=== PATIENT | male | born 1960 | race Caucasian/White ===

== ENCOUNTER 2016-07-18 11:12 | Inpatient (IN) | payer OTHER ==
[~2016-07-18] VITALS: Ht 154.9 cm; Wt 70.4 kg
[2016-07-18] MEDS ORDERED: ASPIRIN 81MG TABLET PO ONE (14:00)
[2016-07-18 14:16] LABS: BASOPHILS % 0.4 % (0.0-2.0); EOSINOPHILS % 0.5 % (0.0-5.0); HEMATOCRIT. 42.5 % (42.0-52.0); HEMOGLOBIN. 14.7 g/dL (14.0-18.0); LYMPHOCYTES % 11.6 % (20.0-50.0); MEAN CORPUSCULAR HGB CONC 34.5 g/dL (31.0-37.0); MEAN CORPUSCULAR VOLUME 89.9 fL (80.0-94.0); MEAN PLATELET VOLUME 8.5 fl (7.4-10.4); MONOCYTES % 5.2 % (2.0-8.0); NEUTROPHILS % 82.3 % (40.0-76.0); PLATELET 80 x1000/uL (130-400); RED BLOOD CELL COUNT 4.73 mill/uL (4.7-6.1); RED CELL DISTRIBUTION WIDTH 13.6 % (11.6-14.6); WHITE BLOOD COUNT 6.7 x1000/uL (4.5-11.0)
[2016-07-18 14:31] LABS: ALANINE AMINOTRANSFERASE 63 IU/L (13-61); ALBUMIN 4.1 g/dL (3.4-5.0); ANION GAP 14; CARBON DIOXIDE 26 mEq/L (21-32); CHLORIDE 105 mEq/L (98-107); HDL CHOLESTEROL 47 mg/dL (40-59); INDEX HEMOLYSI 1 (1-3); INDEX ICTERIC 1 (1-4); INDEX LIPEMIC 1 (1-3); LDL CHOLESTEROL 135 mg/dL (5-100); TRIGLYCERIDE 177 mg/dL (0-150); UREA NITROGEN BLOOD 17 mg/dL (7-21); eGFR > 60 mL/min (>60)
[2016-07-18] MEDS ORDERED: ENOXAPARIN 80MG/0.8ML SYR SUBCUT NR (16:30)
[2016-07-18] MEDS ORDERED: NITROGLYCERIN OINT 1GM/INCH UDPKT TD NR (16:30)
[2016-07-18] MEDS ORDERED: METOPROLOL TARTRATE 25MG TABLET PO ONE (16:30)
[2016-07-18] MEDS ORDERED: CLONIDINE 0.1MG TABLET PO PRN (17:15)
[2016-07-18 17:27] VITALS: BP 153/96
[2016-07-18 17:35] LABS: BASOPHILS % 0.4 % (0.0-2.0); EOSINOPHILS % 0.2 % (0.0-5.0); HEMATOCRIT. 43.1 % (42.0-52.0); LYMPHOCYTES % 11.3 % (20.0-50.0); MEAN CORPUSCULAR HEMOGLOBIN 31.5 pg (28.0-32.0); MEAN CORPUSCULAR HGB CONC 34.9 g/dL (31.0-37.0); MEAN CORPUSCULAR VOLUME 90.4 fL (80.0-94.0); MEAN PLATELET VOLUME 8.9 fl (7.4-10.4); MONOCYTES % 5.8 % (2.0-8.0); NEUTROPHILS % 82.3 % (40.0-76.0); PLATELET 90 x1000/uL (130-400); RED BLOOD CELL COUNT 4.77 mill/uL (4.7-6.1); RED CELL DISTRIBUTION WIDTH 13.9 % (11.6-14.6)
[2016-07-18 18:00] VITALS: BP 171/97
[2016-07-18] MEDS ORDERED: SIMV20TA6 PO (18:12)
[2016-07-18] MEDS ORDERED: SITA1TAB8 PO (18:12)
[2016-07-18] MEDS ORDERED: BENA20TA3 PO (18:12)
[2016-07-18] MEDS ORDERED: GLIP10TA10 PO (18:12)
[2016-07-18] MEDS ORDERED: DEXT 5%/0.45% NACL 1000ML 1,000 ML IV SCH (18:21)
[2016-07-18] MEDS ORDERED: ONDANSETRON HCL 4MG/2ML VIAL IV PRN (18:30)
[2016-07-18] MEDS ORDERED: DEXTROSE 50% WATER 50ML SYRINGE IV PRN (18:30)
[2016-07-18] MEDS ORDERED: MORPHINE SULFATE 2 MG/ML CPJ (NOT FOR IM USE) IV PRN (18:30)
[2016-07-18] MEDS ORDERED: IPRATROPIUM/ALBUTEROL 0.5-3(2.5)MG/3ML NEB INH PRN (18:30)
[2016-07-18] MEDS: LOSARTAN POTASSIUM 25 MG TABLET PO SCH ×2 (18:34→20:15)
[2016-07-18] MEDS: AMLODIPINE 2.5MG TABLET PO SCH ×2 (18:34→20:15)
[2016-07-18 20:00] VITALS: BP 170/86
[2016-07-18] MEDS: INSULIN LISPRO 100 UNITS/ML SUBCUT SCH (20:17)
[2016-07-18] MEDS: BLOOD SUGAR DIAGNOSTIC STRIP TEST SCH (20:17)
[2016-07-18 22:00] VITALS: BP 143/78
[2016-07-18 23:31] LABS: *AMPHETAMINES SCREEN URINE NEGATIVE (NEGATIVE); *BARBITURATES SCREEN URINE NEGATIVE (NEGATIVE); *BENZODIAZEPINES SCREEN URINE NEGATIVE (NEGATIVE); *COCAINE SCREEN URINE NEGATIVE (NEGATIVE); CANNABINOID URINE SCREEN NEGATIVE (NEGATIVE); ECSTASY MDMA SCREEN URINE NEGATIVE (NEGATIVE); METHADONE URINE SCREEN NEGATIVE (NEGATIVE); OPIATES URINE SCREEN NEGATIVE (NEGATIVE); PHENCYCLIDINE URINE SCREEN NEGATIVE (NEGATIVE)
[2016-07-19] VITALS (17 sets, daily range): BP systolic 103–134; BP diastolic 58–87
[2016-07-19 05:56] LABS: BASOPHILS % 0.1 % (0.0-2.0); EOSINOPHILS % 0.3 % (0.0-5.0); HEMATOCRIT. 39.2 % (42.0-52.0); HEMOGLOBIN. 13.7 g/dL (14.0-18.0); LYMPHOCYTES % 14.7 % (20.0-50.0); MEAN CORPUSCULAR HEMOGLOBIN 31.1 pg (28.0-32.0); MEAN CORPUSCULAR HGB CONC 34.9 g/dL (31.0-37.0); MEAN CORPUSCULAR VOLUME 89.1 fL (80.0-94.0); MEAN PLATELET VOLUME 9.6 fl (7.4-10.4); MONOCYTES % 7.7 % (2.0-8.0); NEUTROPHILS % 77.2 % (40.0-76.0); PLATELET 63 x1000/uL (130-400); RED BLOOD CELL COUNT 4.39 mill/uL (4.7-6.1); RED CELL DISTRIBUTION WIDTH 13.8 % (11.6-14.6); WHITE BLOOD COUNT 7.5 x1000/uL (4.5-11.0)
[2016-07-19 06:36] LABS: ALANINE AMINOTRANSFERASE 59 IU/L (13-61); ALBUMIN 3.5 g/dL (3.4-5.0); ANION GAP 14; BILIRUBIN DIRECT 0.1 mg/dL (0.0-0.2); CALCIUM 8.6 mg/dL (8.5-10.1); CARBON DIOXIDE 24 mEq/L (21-32); CHLORIDE 105 mEq/L (98-107); CREATINE KINASE 836 IU/L (39-308); CREATINE KINASE MB FRACTION 46.5 ng/mL (0.5-3.6); HDL CHOLESTEROL 47 mg/dL (40-59); INDEX HEMOLYSI 1 (1-3); INDEX ICTERIC 1 (1-4); INDEX LIPEMIC 1 (1-3); LDL CHOLESTEROL 127 mg/dL (5-100); MAGNESIUM 2.1 mg/dL (1.8-2.4); NT PRO B-TYPE NATRIURETIC PEP 3081 pg/mL (5-125); TRIGLYCERIDE 190 mg/dL (0-150); UREA NITROGEN BLOOD 17 mg/dL (7-21); eGFR > 60 mL/min (>60)
[2016-07-19] MEDS: INSULIN LISPRO 100 UNITS/ML SUBCUT SCH ×4 (07:20→21:32)
[2016-07-19] MEDS: LOSARTAN POTASSIUM 25 MG TABLET PO SCH ×2 (08:46→21:28)
[2016-07-19] MEDS: AMLODIPINE 2.5MG TABLET PO SCH ×2 (08:47→21:28)
[2016-07-19] MEDS ORDERED: PANTOPRAZOLE SODIUM 40 MG/VIAL IV SCH (09:00)
[2016-07-19] MEDS: BLOOD SUGAR DIAGNOSTIC STRIP TEST SCH ×3 (11:50→21:00)
[2016-07-20] VITALS (51 sets, daily range): BP systolic 90–174; BP diastolic 49–96
[2016-07-20 05:41] LABS: PARTIAL THROMBOPLASTIN TIME 26.3 sec (24.0-34.0); PROTHROMBIN TIME 10.6 sec
[2016-07-20 06:30] LABS: BASOPHILS % 0.3 % (0.0-2.0); EOSINOPHILS % 1.2 % (0.0-5.0); HEMATOCRIT. 40.1 % (42.0-52.0); HEMOGLOBIN. 13.7 g/dL (14.0-18.0); LYMPHOCYTES % 27.5 % (20.0-50.0); MEAN CORPUSCULAR HEMOGLOBIN 30.9 pg (28.0-32.0); MEAN CORPUSCULAR HGB CONC 34.1 g/dL (31.0-37.0); MEAN CORPUSCULAR VOLUME 90.7 fL (80.0-94.0); MEAN PLATELET VOLUME 8.8 fl (7.4-10.4); MONOCYTES % 9.7 % (2.0-8.0); NEUTROPHILS % 61.3 % (40.0-76.0); PLATELET 55 x1000/uL (130-400); RED BLOOD CELL COUNT 4.43 mill/uL (4.7-6.1); RED CELL DISTRIBUTION WIDTH 13.6 % (11.6-14.6); WHITE BLOOD COUNT 4.6 x1000/uL (4.5-11.0)
[2016-07-20 06:41] LABS: ALBUMIN 3.6 g/dL (3.4-5.0); ANION GAP 12; CALCIUM 8.9 mg/dL (8.5-10.1); CARBON DIOXIDE 28 mEq/L (21-32); CHLORIDE 105 mEq/L (98-107); INDEX HEMOLYSI 1 (1-3); INDEX ICTERIC 1 (1-4); INDEX LIPEMIC 1 (1-3); UREA NITROGEN BLOOD 18 mg/dL (7-21)
[2016-07-20] MEDS: BLOOD SUGAR DIAGNOSTIC STRIP TEST SCH ×4 (06:50→21:12)
[2016-07-20 06:58] LABS: HEPATITIS B SURFACE ANTIGEN NEGATIVE
[2016-07-20 07:03] LABS: ALANINE AMINOTRANSFERASE 60 IU/L (13-61); CREATINE KINASE 289 IU/L (39-308); CREATINE KINASE MB FRACTION 7.3 ng/mL (0.5-3.6); MAGNESIUM 2.4 mg/dL (1.8-2.4); eGFR > 60 mL/min (>60)
[2016-07-20 07:24] LABS: HEPATITIS C VIR.AB 0.13 INDEXVAL (0.00-0.80)
[2016-07-20 07:25] LABS: HEPATITIS B CORE AB IGM NEGATIVE
[2016-07-20 07:27] LABS: HEPATITIS A AB IGM NEGATIVE (NEGATIVE)
[2016-07-20] MEDS: INSULIN LISPRO 100 UNITS/ML SUBCUT SCH ×4 (07:36→21:11)
[2016-07-20] MEDS: LOSARTAN POTASSIUM 25 MG TABLET PO SCH ×2 (08:50→21:08)
[2016-07-20] MEDS: AMLODIPINE 2.5MG TABLET PO SCH ×2 (08:51→21:00)
[2016-07-20] MEDS: NITROGLYCERIN 0.4MG TABLET SL SL PRN ×2 (11:17→11:20)
[2016-07-20] MEDS ORDERED: NITROGLYCERIN 0.4MG TABLET SL SL ONE (11:21)
[2016-07-20] MEDS ORDERED: MORPHINE SULFATE 2 MG/ML CPJ (NOT FOR IM USE) IV NR (11:30)
[2016-07-20] MEDS: NITROGLYCERIN OINT 1GM/INCH UDPKT TD SCH ×3 (11:56→19:44)
[2016-07-20] MEDS: METOPROLOL TARTRATE 25MG TABLET PO SCH ×2 (11:57→21:55)
[2016-07-20 12:01] LABS: CREATINE KINASE MB FRACTION 5.6 ng/mL (0.5-3.6)
[2016-07-20] MEDS: ASPIRIN 81MG EC TABLET PO SCH (12:20)
[2016-07-20] MEDS: PREDNISONE 20MG TABLET PO SCH (17:12)
[2016-07-21] VITALS (44 sets, daily range): BP systolic 89–150; BP diastolic 28–93
[2016-07-21] MEDS: NITROGLYCERIN OINT 1GM/INCH UDPKT TD SCH ×6 (00:48→20:06)
[2016-07-21 05:35] LABS: BASOPHILS % 0.1 % (0.0-2.0); EOSINOPHILS % 0.4 % (0.0-5.0); HEMATOCRIT. 35.8 % (42.0-52.0); HEMOGLOBIN. 12.6 g/dL (14.0-18.0); LYMPHOCYTES % 20.2 % (20.0-50.0); MEAN CORPUSCULAR HEMOGLOBIN 31.6 pg (28.0-32.0); MEAN CORPUSCULAR HGB CONC 35.1 g/dL (31.0-37.0); MEAN CORPUSCULAR VOLUME 90.1 fL (80.0-94.0); MEAN PLATELET VOLUME 9.4 fl (7.4-10.4); MONOCYTES % 7.1 % (2.0-8.0); NEUTROPHILS % 72.2 % (40.0-76.0); PLATELET 65 x1000/uL (130-400); RED BLOOD CELL COUNT 3.98 mill/uL (4.7-6.1); RED CELL DISTRIBUTION WIDTH 13.9 % (11.6-14.6); WHITE BLOOD COUNT 6.3 x1000/uL (4.5-11.0)
[2016-07-21 05:45] LABS: ALANINE AMINOTRANSFERASE 55 IU/L (13-61); ALBUMIN 3.2 g/dL (3.4-5.0); ANION GAP 14; CALCIUM 8.6 mg/dL (8.5-10.1); CARBON DIOXIDE 25 mEq/L (21-32); CHLORIDE 106 mEq/L (98-107); CREATINE KINASE 143 IU/L (39-308); CREATINE KINASE MB FRACTION 3.5 ng/mL (0.5-3.6); INDEX HEMOLYSI 1 (1-3); INDEX ICTERIC 1 (1-4); INDEX LIPEMIC 1 (1-3); NT PRO B-TYPE NATRIURETIC PEP 806 pg/mL (5-125); UREA NITROGEN BLOOD 24 mg/dL (7-21); eGFR > 60 mL/min (>60)
[2016-07-21] MEDS: BLOOD SUGAR DIAGNOSTIC STRIP TEST SCH ×4 (07:50→20:57)
[2016-07-21] MEDS: INSULIN LISPRO 100 UNITS/ML SUBCUT SCH ×6 (08:20→20:57)
[2016-07-21] MEDS: LOSARTAN POTASSIUM 25 MG TABLET PO SCH ×2 (09:13→20:06)
[2016-07-21] MEDS: PREDNISONE 20MG TABLET PO SCH ×3 (09:13→16:58)
[2016-07-21] MEDS: ASPIRIN 81MG EC TABLET PO SCH (09:13)
[2016-07-21] MEDS: AMLODIPINE 2.5MG TABLET PO SCH ×2 (09:13→20:06)
[2016-07-21] MEDS: METOPROLOL TARTRATE 25MG TABLET PO SCH ×2 (09:54→20:06)
[2016-07-21] MEDS ORDERED: ATORVASTATIN CALCIUM 20MG TABLET PO SCH (21:00)
[2016-07-22 14:23] LABS: HLA CLASS 1 ANTIBODY Negative (Negative); IIb/IIIa ANTIBODY Negative (Negative); Ia/IIa ANTIBODY Negative (Negative); Ib/IX ANTIBODY Negative (Negative)
== END 2016-07-21 23:15 | disposition short-term general hospital (02) | DRG 190 ==
LOC: ER 15:25 → SUPCPDRO 15:31 → 3WST 15:40 → CVICU 07-20 11:26 → 3WST 07-21 14:53
PROVIDERS: ADMIT Family Medicine Adult Medicine; ATTEND Family Medicine Adult Medicine
DX: I21.4 Non-ST elevation (NSTEMI) myocardial infarction (principal); E11.21 Type 2 diabetes mellitus with diabetic nephropathy; I11.9 Hypertensive heart disease without heart failure; E11.65 Type 2 diabetes mellitus with hyperglycemia; D69.6 Thrombocytopenia, unspecified; I73.9 Peripheral vascular disease, unspecified; E78.2 Mixed hyperlipidemia; K21.9 Gastro-esophageal reflux disease without esophagitis; R74.0 Nonspecific elevation of levels of transaminase and lactic acid dehydrogenase [LDH]; E78.00 Pure hypercholesterolemia, unspecified; I25.10 Atherosclerotic heart disease of native coronary artery without angina pectoris; I25.2 Old myocardial infarction
CPT/HCPCS: 36415; 71010; 80053; 80061; 80305; 82248; 82550; 82553; 82962; 83036; 83735; 83880; 84443; 84484; 85025; 85379; 85610; 85730; 86022; 86038; 86703; 86705; 86709; 86803; 87340; 93005; 93306; 93970; 99285; G0482; J1650; J1815; J7512

== ENCOUNTER 2016-09-17 08:44 | Inpatient (IN) | payer OTHER ==
[2016-09-17] VITALS (9 sets, daily range): BP systolic 93–129; BP diastolic 49–76
[~2016-09-17] VITALS: Ht 167.6 cm; Wt 71.9 kg
[2016-09-17] MEDS ORDERED: ONDANSETRON HCL 4MG/2ML VIAL IV STA (09:17)
[2016-09-17] MEDS ORDERED: SODIUM CHLORIDE 0.9% 1,000 ML IV ONE (09:33)
[2016-09-17 09:42] LABS: BASOPHILS % 0.2 % (0.0-2.0); EOSINOPHILS % 0.5 % (0.0-5.0); HEMATOCRIT. 21.5 % (42.0-52.0); HEMOGLOBIN. 7.1 g/dL (14.0-18.0); LYMPHOCYTES % 8.2 % (20.0-50.0); MEAN CORPUSCULAR HEMOGLOBIN 28.5 pg (28.0-32.0); MEAN PLATELET VOLUME 9.2 fl (7.4-10.4); MONOCYTES % 4.6 % (2.0-8.0); NEUTROPHILS % 86.5 % (40.0-76.0); PLATELET 95 x1000/uL (130-400); RED CELL DISTRIBUTION WIDTH 14.6 % (11.6-14.6)
[2016-09-17] MEDS ORDERED: PANTOPRAZOLE SODIUM 40 MG/VIAL IV ONE (09:45)
[2016-09-17 09:46] LABS: INR 1.2; PROTHROMBIN TIME 12.1 sec
[2016-09-17 09:54] LABS: CARBON DIOXIDE 21 mEq/L (21-32); CHLORIDE 109 mEq/L (98-107); TROPONIN I 0.02 ng/mL (0.00-0.04)
[2016-09-17] MEDS ORDERED: PANTOPRAZOLE 80 MG in SODIUM CHLORIDE 0.9% 100 ML IV STA (10:10)
[2016-09-17] MEDS ORDERED: DEXTROSE 50% WATER 50ML SYRINGE IV PRN (11:30)
[2016-09-17] MEDS ORDERED: CLONIDINE 0.1MG TABLET PO PRN (11:30)
[2016-09-17] MEDS ORDERED: DIPHENHYDRAMINE 50MG/ML VIAL IV PRN (11:30)
[2016-09-17] MEDS ORDERED: IPRATROPIUM/ALBUTEROL 0.5-3(2.5)MG/3ML NEB INH PRN (11:30)
[2016-09-17] MEDS ORDERED: ONDANSETRON HCL 4MG/2ML VIAL IV PRN (11:30)
[2016-09-17] MEDS: SODIUM CHLORIDE 0.9% 1,000 ML IV SCH (12:02)
[2016-09-17] MEDS ORDERED: SODIUM CHLORIDE 0.9% 500 ML IV ONE (12:30)
[2016-09-17] MEDS: BLOOD SUGAR DIAGNOSTIC STRIP TEST SCH ×3 (13:00→21:09)
[2016-09-17] MEDS: INSULIN LISPRO 100 UNITS/ML SUBCUT SCH ×3 (13:20→21:00)
[2016-09-17] MEDS ORDERED: SODIUM CHLORIDE 0.9% 10ML VIAL ONE (13:56)
[2016-09-17] MEDS ORDERED: CARV3.1242 PO (14:38)
[2016-09-17] MEDS ORDERED: GABA-531 PO (14:38)
[2016-09-17] MEDS ORDERED: GLIP10TA10 PO (14:38)
[2016-09-17] MEDS ORDERED: ASPI-1159 PO (14:42)
[2016-09-17] MEDS ORDERED: SITA1TAB8 PO (14:42)
[2016-09-17] MEDS ORDERED: ATOR-2 PO (14:42)
[2016-09-17 16:04] LABS: CLARITY URINE CLEAR (CLEAR); COLOR URINE YELLOW (YELLOW); GLUCOSE URINE TRACE (NEGATIVE); KETONES URINE 1+ (NEGATIVE); LEUKOCYTE ESTERASE URINE NEGATIVE (NEGATIVE); NITRITE URINE NEGATIVE (NEGATIVE); OCCULT BLOOD URINE NEGATIVE (NEGATIVE); PROTEIN URINE NEGATIVE (NEGATIVE); SPECIFIC GRAVITY URINE 1.025 (1.005-1.030); UROBILINOGEN URINE 0.2 E.U./dL (0.2-1.0)
[2016-09-17] MEDS ORDERED: FENTANYL CITRATE/PF 50MCG/ML 2ML VIAL ONE (16:21)
[2016-09-17] MEDS ORDERED: MIDAZOLAM HCL 5 MG/5 ML VIAL ONE (16:21)
[2016-09-17] MEDS ORDERED: OCTREOTIDE 1,000 MCG in SODIUM CHLORIDE 0.9% 100 ML IV NR (18:00)
[2016-09-17] MEDS ORDERED: OCTREOTIDE ACETATE 50 MCG/ML 1ML IV NR (18:00)
[2016-09-17 19:02] LABS: HEMATOCRIT 21.3 % (42.0-52.0); HEMOGLOBIN 7.2 g/dL (14.0-18.0); MEAN CORPUSCULAR HEMOGLOBIN 28.9 pg (28.0-32.0); MEAN CORPUSCULAR VOLUME 85.7 fL (80.0-94.0); PLATELET 68 x1000/uL (130-400); RED BLOOD CELL COUNT 2.49 mill/uL (4.7-6.1); RED CELL DISTRIBUTION WIDTH 14.7 % (11.6-14.6)
[2016-09-17] MEDS ORDERED: PANTOPRAZOLE 80 MG in SODIUM CHLORIDE 0.9% 100 ML IV SCH (20:00)
[2016-09-17] MEDS: PANTOPRAZOLE 80 MG in SODIUM CHLORIDE 0.9% 100 ML IV SCH (20:47)
[2016-09-17 20:56] LABS: *AMPHETAMINES SCREEN URINE NEGATIVE (NEGATIVE); *BARBITURATES SCREEN URINE NEGATIVE (NEGATIVE); *BENZODIAZEPINES SCREEN URINE NEGATIVE (NEGATIVE); *COCAINE SCREEN URINE NEGATIVE (NEGATIVE); CANNABINOID URINE SCREEN NEGATIVE (NEGATIVE); METHADONE URINE SCREEN NEGATIVE (NEGATIVE); OPIATES URINE SCREEN NEGATIVE (NEGATIVE); PHENCYCLIDINE URINE SCREEN NEGATIVE (NEGATIVE)
[2016-09-17] MEDS: METOPROLOL TARTRATE 25MG TABLET PO SCH (21:00)
[2016-09-18] VITALS (20 sets, daily range): BP systolic 111–128; BP diastolic 53–80
[2016-09-18 01:37] LABS: HEMATOCRIT 23.3 % (42.0-52.0); HEMOGLOBIN 7.9 g/dL (14.0-18.0)
[2016-09-18] MEDS: SODIUM CHLORIDE 0.9% 1,000 ML IV SCH (06:43)
[2016-09-18] MEDS: BLOOD SUGAR DIAGNOSTIC STRIP TEST SCH ×4 (06:43→22:03)
[2016-09-18] MEDS: PANTOPRAZOLE 80 MG in SODIUM CHLORIDE 0.9% 100 ML IV SCH ×2 (06:59→17:42)
[2016-09-18] MEDS: INSULIN LISPRO 100 UNITS/ML SUBCUT SCH ×4 (07:20→22:03)
[2016-09-18 08:44] LABS: BASOPHILS % 0.3 % (0.0-2.0); EOSINOPHILS % 0.9 % (0.0-5.0); HEMATOCRIT. 25.5 % (42.0-52.0); HEMOGLOBIN. 8.8 g/dL (14.0-18.0); LYMPHOCYTES % 15.7 % (20.0-50.0); MEAN CORPUSCULAR HEMOGLOBIN 29.1 pg (28.0-32.0); MEAN CORPUSCULAR VOLUME 84.5 fL (80.0-94.0); MONOCYTES % 7.2 % (2.0-8.0); NEUTROPHILS % 75.9 % (40.0-76.0); PLATELET 54 x1000/uL (130-400); RED BLOOD CELL COUNT 3.01 mill/uL (4.7-6.1); RED CELL DISTRIBUTION WIDTH 14.7 % (11.6-14.6)
[2016-09-18 09:05] LABS: CARBON DIOXIDE 21 mEq/L (21-32); CHLORIDE 113 mEq/L (98-107); HDL CHOLESTEROL 21 mg/dL (40-59); LDL CHOLESTEROL 35 mg/dL (5-100)
[2016-09-18] MEDS: METOPROLOL TARTRATE 25MG TABLET PO SCH ×2 (11:01→22:01)
[2016-09-18 12:28] LABS: HEMATOCRIT 26.2 % (42.0-52.0)
[2016-09-18] MEDS: HYDROCODONE/ACETAMINOPHEN 5/325MG TABLET PO PRN ×2 (13:40→20:05)
[2016-09-18 16:13] LABS: CREATINE KINASE MB FRACTION 2.9 ng/mL (0.5-3.6)
[2016-09-18 20:01] LABS: HEMATOCRIT 25.4 % (42.0-52.0); HEMOGLOBIN 8.7 g/dL (14.0-18.0)
[2016-09-19] VITALS (31 sets, daily range): BP systolic 103–133; BP diastolic 54–78
[2016-09-19] MEDS: SODIUM CHLORIDE 0.9% 1,000 ML IV SCH (02:26)
[2016-09-19] MEDS: PANTOPRAZOLE 80 MG in SODIUM CHLORIDE 0.9% 100 ML IV SCH ×2 (02:39→17:14)
[2016-09-19 05:46] LABS: HEMATOCRIT 23.7 % (42.0-52.0)
[2016-09-19 06:04] LABS: HEMOGLOBIN 7.9 g/dL (14.0-18.0)
[2016-09-19] MEDS: BLOOD SUGAR DIAGNOSTIC STRIP TEST SCH ×4 (06:45→21:45)
[2016-09-19] MEDS: INSULIN LISPRO 100 UNITS/ML SUBCUT SCH ×3 (07:20→21:00)
[2016-09-19] MEDS: METOPROLOL TARTRATE 25MG TABLET PO SCH ×2 (08:21→21:44)
[2016-09-19 16:30] LABS: HEMATOCRIT 27.6 % (42.0-52.0); HEMOGLOBIN 9.5 g/dL (14.0-18.0)
[2016-09-19 16:53] LABS: HEPATITIS B SURFACE AB < 3.1 mIU/mL
[2016-09-19 17:03] LABS: HEPATITIS B SURFACE ANTIGEN NEGATIVE
[2016-09-19 23:16] LABS: HEMOGLOBIN 8.9 g/dL (14.0-18.0)
[2016-09-20] VITALS (12 sets, daily range): BP systolic 112–136; BP diastolic 56–79
[2016-09-20] MEDS: SODIUM CHLORIDE 0.9% 1,000 ML IV SCH ×2 (00:28→05:59)
[2016-09-20] MEDS: PANTOPRAZOLE 80 MG in SODIUM CHLORIDE 0.9% 100 ML IV SCH (03:45)
[2016-09-20] MEDS: BLOOD SUGAR DIAGNOSTIC STRIP TEST SCH ×2 (06:44→11:18)
[2016-09-20 06:57] LABS: BASOPHILS % 0.3 % (0.0-2.0); EOSINOPHILS % 1.9 % (0.0-5.0); HEMATOCRIT. 26.6 % (42.0-52.0); HEMOGLOBIN. 9.1 g/dL (14.0-18.0); LYMPHOCYTES % 17.6 % (20.0-50.0); MEAN CORPUSCULAR HEMOGLOBIN 29.1 pg (28.0-32.0); MEAN PLATELET VOLUME 9.6 fl (7.4-10.4); MONOCYTES % 9.8 % (2.0-8.0); NEUTROPHILS % 70.4 % (40.0-76.0); RED BLOOD CELL COUNT 3.13 mill/uL (4.7-6.1); RED CELL DISTRIBUTION WIDTH 14.8 % (11.6-14.6)
[2016-09-20 07:03] LABS: CARBON DIOXIDE 26 mEq/L (21-32); CHLORIDE 110 mEq/L (98-107)
[2016-09-20] MEDS: INSULIN LISPRO 100 UNITS/ML SUBCUT SCH ×2 (07:20→12:31)
[2016-09-20] MEDS: METOPROLOL TARTRATE 25MG TABLET PO SCH (08:11)
[2016-09-20] MEDS ORDERED: POTASSIUM CHLORIDE 20MEQ TABLET SR PO SCH (08:45)
[2016-09-20 09:28] LABS: PLATELET 47 x1000/uL (130-400)
[2016-09-21] MEDS ORDERED: OMEPRAZOLE 20MG CAPSULE EXTENDED RELEASE PO SCH (06:50)
== END 2016-09-20 17:15 | disposition home or self-care (01) | DRG 229 ==
LOC: ER 09:15 → 3WST 10:20 → ENRESERV 11:22
PROVIDERS: ADMIT Internal Medicine; ATTEND Internal Medicine
PROC: 30233N1 Transfusion of Nonautologous Red Blood Cells into Peripheral Vein, Percutaneous Approach (ICD-10-PCS; 2016-09-17)
PROC: 06L34CZ Occlusion of Esophageal Vein with Extraluminal Device, Percutaneous Endoscopic Approach (ICD-10-PCS; principal; 2016-09-17 16:30)
DX: I85.01 Esophageal varices with bleeding (principal); D61.818 Other pancytopenia; K76.6 Portal hypertension; D69.59 Other secondary thrombocytopenia; E11.65 Type 2 diabetes mellitus with hyperglycemia; I11.9 Hypertensive heart disease without heart failure; I25.118 Atherosclerotic heart disease of native coronary artery with other forms of angina pectoris; K57.30 Diverticulosis of large intestine without perforation or abscess without bleeding; Z79.82 Long term (current) use of aspirin; I25.2 Old myocardial infarction; Z95.1 Presence of aortocoronary bypass graft
CPT/HCPCS: 36415; 36430; 74176; 76700; 80048; 80053; 80061; 80305; 81001; 82550; 82553; 82962; 83036; 83690; 84484; 85014; 85018; 85025; 85027; 85610; 86706; 86803; 86850; 86900; 86920; 87040; 87086; 87340; 93005; 93306; 96365; 96366; 96375; 99291; A4216; C9113; J1815; J2250; J2354; J2405; J3010; J7030; J7040; J7050; P9016

== ENCOUNTER 2021-10-14 22:53 | Inpatient (IN) | payer MEDICARE, OTHER ==
[~2021-10-14] VITALS: Ht 157.5 cm; Wt 79.4 kg
[~2021-10-14 22:53] MED LIST: ATOR-2 PO; CARV3.1242 PO; GABA-532 PO; GLIP10TA10 PO; SITA1TAB8 PO
[2021-10-14] MEDS ORDERED: ONDANSETRON HCL 4MG/2ML INJ IV STA (23:08)
[2021-10-14] MEDS ORDERED: PANTOPRAZOLE SODIUM 40 MG/VIAL IV ONE (23:15)
[2021-10-14] MEDS ORDERED: SODIUM CHLORIDE 0.9% 1,000 ML IV ONE (23:15)
[2021-10-14 23:41] LABS: BASOPHILS % 0.7 % (0.0-2.0); EOSINOPHILS % 3.4 % (0.0-5.0); HEMATOCRIT. 28.2 % (42.0-52.0); HEMOGLOBIN. 9.6 g/dL (14.0-18.0); LYMPHOCYTES % 26.9 % (20.0-50.0); MEAN CORPUSCULAR HEMOGLOBIN 32.3 pg (28.0-32.0); MEAN CORPUSCULAR VOLUME 94.4 fL (80.0-94.0); MEAN PLATELET VOLUME 9.8 fl (7.4-10.4); MONOCYTES % 8.4 % (2.0-8.0); NEUTROPHILS % 60.6 % (40.0-76.0); PLATELET 75 x1000/uL (130-400); RED BLOOD CELL COUNT 2.99 mill/uL (4.7-6.1); RED CELL DISTRIBUTION WIDTH 13.9 % (11.6-14.6)
[2021-10-14 23:48] LABS: CHLORIDE 109 mEq/L (98-107)
[2021-10-14 23:51] LABS: INR 1.1; PROTHROMBIN TIME 12.1 sec (9.6-11.0)
[2021-10-14 23:56] LABS: ETHANOL BLOOD < 10 mg/dL
[2021-10-15] VITALS (13 sets, daily range): BP systolic 106–134; BP diastolic 50–78
[2021-10-15] MEDS ORDERED: SODIUM CHLORIDE 0.9% 1,000 ML IV ONE (00:30)
[2021-10-15 01:35] LABS: CLARITY URINE CLEAR (CLEAR); COLOR URINE YELLOW (YELLOW); KETONES URINE TRACE (NEGATIVE); LEUKOCYTE ESTERASE URINE NEGATIVE (NEGATIVE); NITRITE URINE NEGATIVE (NEGATIVE); OCCULT BLOOD URINE NEGATIVE (NEGATIVE); PROTEIN URINE NEGATIVE (NEGATIVE); SPECIFIC GRAVITY URINE 1.036 (1.005-1.030); UROBILINOGEN URINE 0.2 E.U./dL (0.2-1.0)
[2021-10-15 02:27] LABS: HEMATOCRIT 24.5 % (42.0-52.0); HEMOGLOBIN 8.5 g/dL (14.0-18.0)
[2021-10-15] MEDS ORDERED: INSULIN REGULAR (HUMULIN R) 300UNITS/3ML VIAL SUBCUT ONE (03:15)
[2021-10-15] MEDS ORDERED: OMEP1CAP25 MT (09:24)
[2021-10-15] MEDS ORDERED: ISOS10TA53 MT (09:27)
[2021-10-15] MEDS ORDERED: LISI2.5T47 MT (09:27)
[2021-10-15] MEDS ORDERED: MAGNESIUM/ALUMINUM HYDROXIDE/SIMETHICONE 30ML UDC PO PRN (09:30)
[2021-10-15] MEDS ORDERED: ACETAMINOPHEN 325MG TABLET PO PRN (09:30)
[2021-10-15] MEDS ORDERED: DEXTROSE 50% WATER 50ML SYRINGE IV PRN ×2 (09:30)
[2021-10-15] MEDS ORDERED: ONDANSETRON HCL 4MG/2ML INJ IV PRN (09:30)
[2021-10-15] MEDS ORDERED: CLONIDINE 0.1MG TABLET PO PRN (09:30)
[2021-10-15] MEDS ORDERED: HYDROCODONE/ACETAMINOPHEN 5/325MG TABLET PO PRN (09:30)
[2021-10-15] MEDS ORDERED: NALOXONE HCL 0.4MG/ML VIAL IV PRN (09:45)
[2021-10-15] MEDS ORDERED: PANTOPRAZOLE SODIUM 40 MG/VIAL IV ONE (10:45)
[2021-10-15] MEDS: PANTOPRAZOLE SODIUM 40 MG/VIAL IV SCH ×2 (10:50→22:52)
[2021-10-15] MEDS: INSULIN LISPRO 100 UNITS/ML SUBCUT SCH ×4 (11:21→22:49)
[2021-10-15] MEDS: BLOOD SUGAR DIAGNOSTIC STRIP TEST SCH ×3 (11:21→21:00)
[2021-10-15] MEDS ORDERED: OCTREOTIDE ACETATE 50 MCG/ML 1ML SUBCUT NR (11:30)
[2021-10-15 12:00] LABS: CHLORIDE 113 mEq/L (98-107)
[2021-10-15] MEDS ORDERED: OCTREOTIDE ACETATE 50 MCG/ML 1ML IV SCH (12:00)
[2021-10-15 12:32] LABS: FOLIC ACID (FOLATE) SERUM 12.7 ng/mL (>5.38)
[2021-10-15] MEDS ORDERED: DEXTROSE 50% WATER 50ML SYRINGE IV NR (13:00)
[2021-10-15] MEDS ORDERED: CALCIUM CHLORIDE 1,000 MG in DEXT 5% WATER 90 ML IV NR (13:00)
[2021-10-15] MEDS ORDERED: SODIUM BICARBONATE 8.4% 1 MEQ/ML 50ML SYR IV NR (13:00)
[2021-10-15] MEDS ORDERED: INSULIN REGULAR (HUMULIN R) 300UNITS/3ML VIAL IV NR (13:00)
[2021-10-15 13:13] LABS: MEAN CORPUSCULAR HEMOGLOBIN 32.5 pg (28.0-32.0); PLATELET 90 x1000/uL (130-400); RED CELL DISTRIBUTION WIDTH 14.3 % (11.6-14.6)
[2021-10-15 13:24] LABS: HEMOGLOBIN 6.8 g/dL (14.0-18.0)
[2021-10-15 13:27] LABS: HEPATITIS B SURFACE ANTIGEN NEGATIVE
[2021-10-15] MEDS: INSULIN GLARGINE 100 UNITS/ML SUBCUT SCH ×2 (14:03→22:50)
[2021-10-15] MEDS: OCTREOTIDE 1,000 MCG in SODIUM CHLORIDE 0.9% 98 ML IV SCH (14:47)
[2021-10-16] VITALS (16 sets, daily range): BP systolic 116–168; BP diastolic 67–80
[2021-10-16 06:23] LABS: INR 1.2; PROTHROMBIN TIME 12.6 sec (9.6-11.0)
[2021-10-16 06:29] LABS: CHLORIDE 118 mEq/L (98-107)
[2021-10-16 06:30] LABS: BASOPHILS % 0.1 % (0.0-2.0); HEMATOCRIT. 27.5 % (42.0-52.0); HEMOGLOBIN. 9.5 g/dL (14.0-18.0); LYMPHOCYTES % 15.2 % (20.0-50.0); MEAN CORPUSCULAR HEMOGLOBIN 31.4 pg (28.0-32.0); MEAN CORPUSCULAR VOLUME 90.9 fL (80.0-94.0); MEAN PLATELET VOLUME 9.6 fl (7.4-10.4); MONOCYTES % 8.4 % (2.0-8.0); NEUTROPHILS % 76.3 % (40.0-76.0); PLATELET 79 x1000/uL (130-400); RED BLOOD CELL COUNT 3.03 mill/uL (4.7-6.1); RED CELL DISTRIBUTION WIDTH 14.3 % (11.6-14.6)
[2021-10-16 06:46] LABS: PHOSPHORUS 3.6 mg/dL (2.5-4.9)
[2021-10-16] MEDS: BLOOD SUGAR DIAGNOSTIC STRIP TEST SCH ×4 (07:30→21:58)
[2021-10-16] MEDS: PANTOPRAZOLE SODIUM 40 MG/VIAL IV SCH ×2 (09:21→21:58)
[2021-10-16] MEDS: INSULIN LISPRO 100 UNITS/ML SUBCUT SCH ×4 (09:22→22:18)
[2021-10-16] MEDS: SODIUM CHLORIDE 0.45% 1,000 ML IV SCH (09:23)
[2021-10-16] MEDS: OCTREOTIDE 1,000 MCG in SODIUM CHLORIDE 0.9% 98 ML IV SCH (11:23)
[2021-10-16 19:46] LABS: HEMATOCRIT 25.2 % (42.0-52.0); HEMOGLOBIN 8.4 g/dL (14.0-18.0)
[2021-10-16] MEDS: INSULIN GLARGINE 100 UNITS/ML SUBCUT SCH (22:19)
[2021-10-17] VITALS (11 sets, daily range): BP systolic 121–156; BP diastolic 61–87
[2021-10-17 01:13] LABS: HEMATOCRIT 24.4 % (42.0-52.0); HEMOGLOBIN 8.3 g/dL (14.0-18.0)
[2021-10-17] MEDS: SODIUM CHLORIDE 0.45% 1,000 ML IV SCH ×2 (02:28→22:16)
[2021-10-17] MEDS: OCTREOTIDE 1,000 MCG in SODIUM CHLORIDE 0.9% 98 ML IV SCH (04:10)
[2021-10-17 06:21] LABS: BASOPHILS % 0.2 % (0.0-2.0); EOSINOPHILS % 0.2 % (0.0-5.0); HEMATOCRIT. 22.6 % (42.0-52.0); HEMOGLOBIN. 7.8 g/dL (14.0-18.0); LYMPHOCYTES % 16.6 % (20.0-50.0); MEAN CORPUSCULAR HEMOGLOBIN 31.6 pg (28.0-32.0); MEAN CORPUSCULAR VOLUME 91.6 fL (80.0-94.0); MONOCYTES % 8.4 % (2.0-8.0); NEUTROPHILS % 74.6 % (40.0-76.0); RED BLOOD CELL COUNT 2.47 mill/uL (4.7-6.1); RED CELL DISTRIBUTION WIDTH 14.9 % (11.6-14.6)
[2021-10-17 06:22] LABS: INR 1.2; PROTHROMBIN TIME 12.4 sec (9.6-11.0)
[2021-10-17 06:27] LABS: CHLORIDE 115 mEq/L (98-107)
[2021-10-17 06:35] LABS: PHOSPHORUS 3.8 mg/dL (2.5-4.9)
[2021-10-17] MEDS: BLOOD SUGAR DIAGNOSTIC STRIP TEST SCH ×4 (07:30→21:00)
[2021-10-17] MEDS: INSULIN LISPRO 100 UNITS/ML SUBCUT SCH ×4 (08:00→22:17)
[2021-10-17 08:25] LABS: MEAN PLATELET VOLUME 9.1 fl (7.4-10.4)
[2021-10-17] MEDS: PANTOPRAZOLE SODIUM 40 MG/VIAL IV SCH ×2 (09:00→22:15)
[2021-10-17] MEDS ORDERED: PROPOFOL 200MG/20ML VIAL IV ONE ×2 (10:49→11:08)
[2021-10-17] MEDS ORDERED: DEXAMETHASONE 4MG/ML 1ML VIAL ONE (10:50)
[2021-10-17] MEDS ORDERED: ONDANSETRON HCL 4MG/2ML INJ ONE (10:50)
[2021-10-17] MEDS ORDERED: PHENYLEPHRINE HCL 10 MG/ML 1ML (IV VIAL) IV ONE (11:00)
[2021-10-17 20:59] LABS: HEMOGLOBIN 7.3 g/dL (14.0-18.0)
[2021-10-17] MEDS: INSULIN GLARGINE 100 UNITS/ML SUBCUT SCH (22:17)
[2021-10-18] VITALS (11 sets, daily range): BP systolic 105–158; BP diastolic 42–103
[2021-10-18] MEDS: OCTREOTIDE 1,000 MCG in SODIUM CHLORIDE 0.9% 98 ML IV SCH (02:40)
[2021-10-18 06:31] LABS: BASOPHILS % 0.1 % (0.0-2.0); EOSINOPHILS % 0.1 % (0.0-5.0); HEMATOCRIT. 22.2 % (42.0-52.0); HEMOGLOBIN. 7.7 g/dL (14.0-18.0); LYMPHOCYTES % 14.4 % (20.0-50.0); MEAN CORPUSCULAR HEMOGLOBIN 31.9 pg (28.0-32.0); MEAN CORPUSCULAR VOLUME 91.5 fL (80.0-94.0); MEAN PLATELET VOLUME 8.8 fl (7.4-10.4); MONOCYTES % 8.4 % (2.0-8.0); RED BLOOD CELL COUNT 2.42 mill/uL (4.7-6.1); RED CELL DISTRIBUTION WIDTH 14.7 % (11.6-14.6)
[2021-10-18 06:37] LABS: PLATELET 45 x1000/uL (130-400)
[2021-10-18] MEDS: BLOOD SUGAR DIAGNOSTIC STRIP TEST SCH ×3 (07:21→17:09)
[2021-10-18] MEDS ORDERED: ISOS60TA76 PO (08:26)
[2021-10-18] MEDS ORDERED: ICOS1CAP PO (08:26)
[2021-10-18] MEDS ORDERED: CARV12.545 PO (08:26)
[2021-10-18] MEDS ORDERED: LISI40TA13 PO (08:26)
[2021-10-18] MEDS ORDERED: EZET10TA13 PO (08:26)
[2021-10-18] MEDS ORDERED: ASPI-1497 PO (08:26)
[2021-10-18] MEDS: PANTOPRAZOLE SODIUM 40 MG/VIAL IV SCH (08:49)
[2021-10-18] MEDS: INSULIN LISPRO 100 UNITS/ML SUBCUT SCH ×3 (08:50→17:09)
[2021-10-18 10:32] LABS: BASOPHILS % 0.1 % (0.0-2.0); EOSINOPHILS % 0.1 % (0.0-5.0); HEMATOCRIT. 23.3 % (42.0-52.0); HEMOGLOBIN. 7.9 g/dL (14.0-18.0); LYMPHOCYTES % 12.7 % (20.0-50.0); MEAN CORPUSCULAR HEMOGLOBIN 31.8 pg (28.0-32.0); MEAN CORPUSCULAR VOLUME 93.9 fL (80.0-94.0); MEAN PLATELET VOLUME 8.5 fl (7.4-10.4); MONOCYTES % 6.9 % (2.0-8.0); NEUTROPHILS % 80.2 % (40.0-76.0); RED BLOOD CELL COUNT 2.48 mill/uL (4.7-6.1); RED CELL DISTRIBUTION WIDTH 14.6 % (11.6-14.6)
[2021-10-18 10:39] LABS: PLATELET 48 x1000/uL (130-400)
[2021-10-18 10:49] LABS: CHLORIDE 111 mEq/L (98-107)
[2021-10-18] MEDS: SODIUM CHLORIDE 0.45% 1,000 ML IV SCH (11:00)
[2021-10-18] MEDS: PROPRANOLOL HCL 10MG TABLET PO SCH ×2 (13:28→17:00)
[2021-10-18 14:12] LABS: PLATELET 48 x1000/uL (130-400)
== END 2021-10-18 18:02 | disposition home or self-care (01) | DRG 432 ==
LOC: ER 22:53 → MICUSO 10-15 03:08 → 8WST 10-15 09:52 → 5EST 10-15 11:55
PROVIDERS: ADMIT Internal Medicine; ATTEND Internal Medicine
PROC: 30233N1 Transfusion of Nonautologous Red Blood Cells into Peripheral Vein, Percutaneous Approach (ICD-10-PCS; 2021-10-15)
PROC: 06L38CZ Occlusion of Esophageal Vein with Extraluminal Device, Via Natural or Artificial Opening Endoscopic (ICD-10-PCS; principal; 2021-10-17)
DX: K74.60 Unspecified cirrhosis of liver (principal); I85.11 Secondary esophageal varices with bleeding; N17.0 Acute kidney failure with tubular necrosis; E44.0 Moderate protein-calorie malnutrition; K76.6 Portal hypertension; E87.2 Acidosis; D69.59 Other secondary thrombocytopenia; I10 Essential (primary) hypertension; Z20.822 Contact with and (suspected) exposure to COVID-19; E87.5 Hyperkalemia; E11.65 Type 2 diabetes mellitus with hyperglycemia; D53.9 Nutritional anemia, unspecified; K31.89 Other diseases of stomach and duodenum; K44.9 Diaphragmatic hernia without obstruction or gangrene; I25.10 Atherosclerotic heart disease of native coronary artery without angina pectoris; I25.2 Old myocardial infarction; Z95.1 Presence of aortocoronary bypass graft; Z68.32 Body mass index [BMI] 32.0-32.9, adult
CPT/HCPCS: 36415; 71045; 74176; 80048; 80053; 80076; 80320; 81003; 82248; 82607; 82728; 82746; 82962; 83036; 83540; 83550; 83735; 84100; 84132; 84484; 85014; 85018; 85025; 85027; 85044; 86705; 86709; 86803; 86850; 86900; 86920; 87340; 87426; 93005; 93970; 99291; C9113; J1100; J1815; J2354; J2370; J2405; J2704; J3490; J7030; J7050; J7060; P9016; G0480

== ENCOUNTER → 2021-12-10 | Day surgery (SDC) | payer MEDICARE, OTHER ==
[~2021-12-10] VITALS: Ht 154.9 cm; Wt 73.5 kg
[~2021-12-10] MED LIST changes: +CARV12.545 PO; -CARV3.1242 PO; +EPHEDRINE SULFATE 50MG/ML VIAL ONE; +EZET10TA13 PO; -GABA-532 PO; +LIDOCAINE HCL 1% 10 MG/ML 10ML VIAL ONE; +MIDAZOLAM HCL 2 MG/2 ML VIAL ONE; +OMEP1CAP25 MT; +PHENYLEPHRINE HCL 10 MG/ML 1ML (IV VIAL) IV ONE; +PROP10TA10 PO; +PROPOFOL 200MG/20ML VIAL IV ONE; +SODIUM CHLORIDE 0.9% 1,000 ML IV SCH
[2021-12-10 08:59] LABS: CHLORIDE 108 mEq/L (98-107)
[2021-12-10 09:01] LABS: INR 1.1; PARTIAL THROMBOPLASTIN TIME 27.5 sec (23.4-31.0); PROTHROMBIN TIME 11.6 sec (9.6-11.0)
[2021-12-10 09:02] LABS: HEMATOCRIT. 25.5 % (42.0-52.0); HEMOGLOBIN. 8.4 g/dL (14.0-18.0); MEAN CORPUSCULAR HEMOGLOBIN 27.2 pg (28.0-32.0); MEAN CORPUSCULAR VOLUME 82.5 fL (80.0-94.0); MEAN PLATELET VOLUME 9.1 fl (7.4-10.4); RED BLOOD CELL COUNT 3.09 mill/uL (4.7-6.1); RED CELL DISTRIBUTION WIDTH 16.4 % (11.6-14.6)
[2021-12-10 09:06] LABS: PLATELET 44 x1000/uL (130-400)
[2021-12-10 10:36] LABS: PLATELET ESTIMATE MARKEDLY DECREASED
== END | disposition home or self-care (01) ==
LOC: OR 07:48
PROVIDERS: ATTEND Internal Medicine Gastroenterology
DX: I85.01 Esophageal varices with bleeding (principal); K74.60 Unspecified cirrhosis of liver; D61.818 Other pancytopenia; K44.9 Diaphragmatic hernia without obstruction or gangrene; K31.89 Other diseases of stomach and duodenum; I10 Essential (primary) hypertension; E11.9 Type 2 diabetes mellitus without complications; I25.10 Atherosclerotic heart disease of native coronary artery without angina pectoris; E78.00 Pure hypercholesterolemia, unspecified; Z79.84 Long term (current) use of oral hypoglycemic drugs; Z79.899 Other long term (current) drug therapy; Z98.890 Other specified postprocedural states; Z20.822 Contact with and (suspected) exposure to COVID-19
CPT/HCPCS: 36415; 43244; 80048; 85025; 85610; 85730; 87426; 93005; C9803; J2250; J2370; J2704; J3490

== ENCOUNTER 2023-09-01 08:01 | Day surgery (SDC) | payer MEDICARE, MEDICAID ==
[~2023-09-01] VITALS: Ht 154.9 cm; Wt 72.6 kg
[~2023-09-01 08:01] MED LIST changes: -EPHEDRINE SULFATE 50MG/ML VIAL ONE; -EZET10TA13 PO; +EZET10TA81 PO; -LIDOCAINE HCL 1% 10 MG/ML 10ML VIAL ONE; -MIDAZOLAM HCL 2 MG/2 ML VIAL ONE; -PHENYLEPHRINE HCL 10 MG/ML 1ML (IV VIAL) IV ONE; -PROPOFOL 200MG/20ML VIAL IV ONE; -SODIUM CHLORIDE 0.9% 1,000 ML IV SCH
[2023-09-01] MEDS: SODIUM CHLORIDE 0.9% 1,000 ML IV SCH (08:52)
[2023-09-01] MEDS ORDERED: NITR0.4T49 SL (09:21)
[2023-09-01] MEDS ORDERED: ATOR40TA70 PO (09:21)
[2023-09-01] MEDS ORDERED: OMEP40CA20 PO (09:21)
[2023-09-01] MEDS ORDERED: CARV25TA47 PO (09:21)
[2023-09-01] MEDS ORDERED: ISOS120T13 PO (09:21)
[2023-09-01] MEDS ORDERED: SIMETHICONE 40 MG/0.6 ML 15ML ONE (10:33)
[2023-09-01] MEDS ORDERED: LIDOCAINE HCL/PF 1% 10 MG/ML 5ML VIAL ONE (10:36)
[2023-09-01] MEDS ORDERED: PROPOFOL 200MG/20ML VIAL IV ONE (10:36)
== END 2023-09-01 12:20 | disposition home or self-care (01) ==
LOC: OR 08:01
PROVIDERS: ATTEND Internal Medicine Gastroenterology
DX: I85.01 Esophageal varices with bleeding (principal); K74.60 Unspecified cirrhosis of liver; K44.9 Diaphragmatic hernia without obstruction or gangrene; D69.6 Thrombocytopenia, unspecified; K76.6 Portal hypertension; I25.10 Atherosclerotic heart disease of native coronary artery without angina pectoris; E11.9 Type 2 diabetes mellitus without complications; E78.5 Hyperlipidemia, unspecified; K21.9 Gastro-esophageal reflux disease without esophagitis; Z86.2 Personal history of diseases of the blood and blood-forming organs and certain disorders involving the immune mechanism; Z79.899 Other long term (current) drug therapy; Z98.890 Other specified postprocedural states; Z82.49 Family history of ischemic heart disease and other diseases of the circulatory system; Z83.3 Family history of diabetes mellitus
CPT/HCPCS: 43244; 82962; 93005; J3490; J2704

== ENCOUNTER → 2025-02-28 | Day surgery (SDC) | payer MEDICARE, OTHER ==
[~2025-02-28] VITALS: Ht 154.9 cm; Wt 72.6 kg
[~2025-02-28] MED LIST changes: -ATOR-2 PO; +ATOR20TA65 PO; -CARV12.545 PO; +CARV25TA47 PO; +EMPA25TA MT; +EZET10TA81 MT; -EZET10TA81 PO; -GLIP10TA10 PO; +GLIP10TA17 MT; +INSU100I28 SQ; +ISOS60TA76 PO; +LISI10TA26 PO; +NITR0.4T49 SL; -OMEP1CAP25 MT; -PROP10TA10 PO; -SITA1TAB8 PO; +SODIUM CHLORIDE 0.9% 1,000 ML IV SCH; +SUCR1TAB PO
== END | disposition home or self-care (01) ==
LOC: OR 07:55
PROVIDERS: ATTEND Internal Medicine Gastroenterology
DX: Z12.11 Encounter for screening for malignant neoplasm of colon (principal); K74.60 Unspecified cirrhosis of liver; K44.9 Diaphragmatic hernia without obstruction or gangrene; K29.50 Unspecified chronic gastritis without bleeding; D69.6 Thrombocytopenia, unspecified; E11.9 Type 2 diabetes mellitus without complications; I10 Essential (primary) hypertension; I25.10 Atherosclerotic heart disease of native coronary artery without angina pectoris; I85.10 Secondary esophageal varices without bleeding; I86.8 Varicose veins of other specified sites; K76.6 Portal hypertension; Z79.899 Other long term (current) drug therapy; Z87.19 Personal history of other diseases of the digestive system; Z95.1 Presence of aortocoronary bypass graft; Z98.890 Other specified postprocedural states; Z82.49 Family history of ischemic heart disease and other diseases of the circulatory system; Z83.3 Family history of diabetes mellitus; Z79.4 Long term (current) use of insulin
CPT/HCPCS: 43239; 82962; 88312; 88313; 88305; 93005; G0121